=== PATIENT | female | born 1965 | race Caucasian/White ===

== ENCOUNTER → 2018-07-26 | Outpatient (CLI) | payer OTHER ==
[~2018-07-26] VITALS: Ht 170.2 cm; Wt 85.3 kg
[~2018-07-26] MED LIST: ALDACTONE50 MG PO; ALIVE ONCE DAI1 EACH PO; CENTRUM SILVER1 EAC4 PO; FISH OIL 1,001000 M2 PO; NORVASC5 MG PO; VITAMIN B-12500 MCG PO; VITAMIN D31000 UNI2 PO
--- NOTE | 2018-07-29 08:16 | P ---
[facility] [place] [address] PROCEDURE REPORT Name: MICHAELSPENCER CONCHA Room #: REG [facility] Farhad.#: [id number] Admission: 07/26/18 ������������������ Attend Phys: Zach Chávez Discharge: ������������������ Date of : 61 Report #: [id number] THIS REPORT FOR: //name// CC: Britta Post [facility] unknown DATE OF SERVICE: 07/26/2018 PROCEDURE PERFORMED: Colonoscopy with biopsies. HISTORY OF PRESENT ILLNESS: The patient is a 52-year-old female who presents today for routine screening colonoscopy. No previous history of endoscopy, no family history of colon cancer. The patient denies any symptoms. DESCRIPTION OF PROCEDURE: The risks and benefits of the procedure were explained to the patient, those risks including but not limited to bleeding, perforation and the risk of sedation. She understood these risks and gave informed consent. Sedation was given using propofol per anesthesia. Next, a digital rectal exam was initially performed, which was normal. Next, using a standard Olympus colonoscope, the scope was placed in the patient's anus and advanced under direct vision to the cecum. The overall prep was excellent. The cecum and ileocecal valve were normal in appearance. The ascending, transverse and descending colon were normal. In the sigmoid colon, a 4 mm sessile polyp was noted and removed with cold forceps. A few scattered diverticula were also noted in the sigmoid colon. No evidence of inflammation. The rectal mucosa was normal. On retroflexion, no abnormalities were noted. The scope was then withdrawn and the procedure terminated. The patient tolerated the procedure well. IMPRESSION: 1. Small colonic polyp. 2. Mild sigmoid diverticulosis. 3. Otherwise, normal colonoscopy. RECOMMENDATIONS: 1. Await biopsy results. 2. If polyp is hyperplastic, repeat in 10 years; if adenomatous polyp, repeat in 5 years. Thank you for allowing me to participate in her care. ��������������������������������������������� <ELECTRONICALLY SIGNED> ���������������������������������������� By: Zach Post MD ��������������������������������������������� 07/29/18 0816 [id number] Zach Post MD /nt
--- NOTE | 2018-07-29 16:07 | PATH ---
[facility] [address] [place] [address] PATHOLOGY RPT PROCEDURE Name: IVANIA RODRIGUEZ Room #: REG PONCHO [place]#: [id number] ������������������ Admission: 07/26/18 ������������������ Date of : 61 Discharge: Report #: [id number] Path Case #: [id number] [facility] Accession Number: [id number] . 01 Material submitted: . BX POLYP AT SIGMOID COLON . 01 Clinical history: . Pre-OP DX: Screening Post-OP DX: Colon polyp, diverticulosis . 02 Diagnosis: Polyp, at sigmoid colon, endoscopic biopsy: - Minute tubular adenoma present in one fragment without high-grade dysplasia. - Remainder of fragments showing hyperplastic polyp without dysplasia. (IUV:karl; 07/29/2018) QMS/07/29/2018 . 02 Electronically signed: . Grecia Patel MD, Pathologist NPI- [id number] . 01 Gross description: . Received in formalin labeled "Ivania Rodriguez, BX polyp sigmoid colon," are 3 segments of hernadez soft tissue measuring 0.9 x 0.6 x 0.2 cm in aggregate dimensions and ranging from 0.2 to 0.4 cm in maximum dimension. The specimen is submitted entirely in cassette A1. (TSD; 07/26/2018) TOB/TOB . 02 Pathologist provided ICD-10: D12.5, K63.5 . 02 CPT . 351629 Specimen Comment: A courtesy copy of this report has been sent to Specimen Comment: [phone]. Specimen Comment: Report sent to Performed at: [address], [place] [id number] MD Seamus Anne MD Phone: [phone] Performed at: [address] [id number] MD Grecia Patel MD Phone: [phone]
== END | disposition home or self-care (01) ==
LOC: EDSTATUS 07:38 → GI 07:42
DX: Z12.11 Encounter for screening for malignant neoplasm of colon (principal); K57.30 Diverticulosis of large intestine without perforation or abscess without bleeding; D12.5 Benign neoplasm of sigmoid colon; I10 Essential (primary) hypertension; G47.33 Obstructive sleep apnea (adult) (pediatric)
CPT/HCPCS: 62110; 62900